=== PATIENT | female | born 1945 | race Asian ===

== ENCOUNTER 2021-03-16 17:29 | Inpatient (IN) | payer MEDICARE, MEDICAID ==
[~2021-03-16] VITALS: Ht 162.6 cm; Wt 68.2 kg
[2021-03-16] MEDS ORDERED: insulin regular, human U-100 3ml vial - multi-dose IV ONE (18:30)
[2021-03-16] MEDS ORDERED: normal saline 1000ML IV soln IVB ONE (18:30)
[2021-03-16 19:02] LABS: MEAN CORPUSCULAR HEMOGLOBIN 29.4 PG (27.0-31.0); MEAN PLATELET VOLUME 8.3 FL (7.4-10.4)
[2021-03-16 19:04] LABS: BASOPHILS % (AUTO) 0.3 % (0-1); EOSINOPHILS % (AUTO) 0.3 % (0-6); LYMPHOCYTES # (AUTO) 1.3 X10'3 (1.1-4.8); MEAN CORPUSCULAR HGB CONC 33.4 g/dL (33.0-36.5); MONOCYTES % (AUTO) 6.3 % (2-12); NEUTROPHILS % (AUTO) 85.1 % (42-75); PLATELET COUNT 343 X10'3 (140-440); RED BLOOD COUNT 4.09 X10'6 (4.20-5.60); RED CELL DISTRIBUTION WIDTH 12.8 % (11.5-14.5); WHITE BLOOD COUNT 16.5 X10'3 (4.5-11.0)
[2021-03-16 19:11] LABS: ALANINE AMINOTRANSFERASE 18 U/L (12-78); ALBUMIN/GLOBULIN RATIO 0.4 (1.1-1.5); ALKALINE PHOSPHATASE 168 IU/L (46-116); ANION GAP 13 (8-16); ASPARTATE AMINO TRANSFERASE 21 U/L (10-37); BILIRUBIN,TOTAL 0.7 MG/DL (0.1-1.0); BLOOD UREA NITROGEN 21 MG/DL (7-18); BUN/CREATININE RATIO 12.3 (6.6-38.0); CALCIUM 9.1 MG/DL (8.5-10.1); CHLORIDE 97 MMOL/L (99-107); CREATININE 1.71 MG/DL (0.40-0.90); POTASSIUM 4.5 MMOL/L (3.5-5.1); SODIUM 135 MMOL/L (135-145); TOTAL CARBON DIOXIDE 25.4 MMOL/L (24-32); TOTAL PROTEIN 7.7 G/DL (6.4-8.2); eGFR 29 ML/MIN
[2021-03-16] MEDS ORDERED: normal saline 1000ML IV soln IV ONE (19:25)
[2021-03-16 19:28] LABS: GLUCOSE 483 MG/DL (70-104)
[2021-03-16] MEDS ORDERED: TETanus/Pertussis (Acell)/Diphther VAC/PF (Tdap-Adult) 0.5ml syringe IMVAC ONE (19:40)
[2021-03-16] MEDS ORDERED: vancomycin/NS 1 GM ADD-VANTAGE 250 ML IV ONE (19:40)
--- NOTE | 2021-03-16 19:41 | NUR ---
PT ROOMED IN BED 10. ASSUMED CARE OF PT.
[2021-03-16] MEDS ORDERED: piperacillin/tazo 3.375gm/50ml 50 ML IV ONE (19:45)
[2021-03-16] MEDS ORDERED: insulin regular, human 10 units/0.1 ml syringe IV ONE (21:00)
[2021-03-16] MEDS ORDERED: potassium Cl 20 mEq SR tablet PO PRN ×2 (21:10)
[2021-03-16] MEDS ORDERED: ondansetron/PF 4mg/2ml inj IV PRN (21:10)
[2021-03-16] MEDS ORDERED: potassium Cl 40MEQ/1/2NS 520ml 520 ML IV PRN ×2 (21:10)
[2021-03-16] MEDS ORDERED: magnesium 4gm in 100ml NS 100 ML IV PRN (21:10)
[2021-03-16] MEDS ORDERED: magnesium 2GM in 50ml NS 50 ML IV PRN (21:10)
[2021-03-16] MEDS ORDERED: magnesium Cl slow-release 64mg tablet PO PRN (21:10)
[2021-03-16] MEDS ORDERED: CefTRIAXone/D5W-Rocephin 1gm 50 ML IV SCH (21:15)
[2021-03-16] MEDS: normal saline 1000ml 1,000 ML IV SCH (22:06)
--- NOTE | 2021-03-17 00:17 | NUR ---
PT HAD EPISODE OF EMESIS. BG CHECKED AND ZOFRAN GIVEN.
--- NOTE | 2021-03-17 00:33 | NUR ---
PT IS NOW SLEEPING COMFORTABLY AGAIN
[2021-03-17] MEDS ORDERED: SITA100T15 PO (05:55)
[2021-03-17] MEDS ORDERED: METF-900 PO (05:55)
[2021-03-17] MEDS ORDERED: EMPA25TA PO (05:55)
[2021-03-17] MEDS ORDERED: CEPH-585 PO (05:55)
[2021-03-17] MEDS ORDERED: LANS15CA18 PO (05:55)
[2021-03-17] MEDS ORDERED: LOSA100T57 PO (05:55)
[2021-03-17] MEDS: K and/or MAG REPLACEMENT MC SCH ×2 (08:00→20:00)
[2021-03-17] MEDS: cefepime 1GM in D5W 50mL 50 ML IV SCH ×2 (08:10→20:53)
[2021-03-17] MEDS: normal saline 1000ml 1,000 ML IV SCH ×2 (08:10→13:25)
[2021-03-17] MEDS ORDERED: dextrose 50%-water 50ml dispensing syringe IV PRN ×2 (08:15)
[2021-03-17] MEDS ORDERED: dextrose ORAL solution 15 GM/59 ML bottle PO PRN ×2 (08:15)
[2021-03-17] MEDS ORDERED: glucagon, human recombinant 1mg kit SUBCUT PRN (08:15)
[2021-03-17] MEDS ORDERED: MESSAGE TO PHARMACY PO ONE (08:15)
[2021-03-17 08:24] LABS: BASOPHILS % (AUTO) 0.3 % (0-1); EOSINOPHILS % (AUTO) 0.3 % (0-6); HEMATOCRIT 30.2 % (35.0-45.0); HEMOGLOBIN 9.9 g/dl (12.0-16.0); LYMPHOCYTES % (AUTO) 7.3 % (21-51); MEAN CORPUSCULAR HEMOGLOBIN 29.1 PG (27.0-31.0); MEAN CORPUSCULAR HGB CONC 32.6 g/dL (33.0-36.5); MEAN CORPUSCULAR VOLUME 89.3 FL (78-98); MEAN PLATELET VOLUME 7.9 FL (7.4-10.4); MONOCYTES # (AUTO) 0.9 X10'3 (0-0.9); MONOCYTES % (AUTO) 6.6 % (2-12); NEUTROPHILS # (AUTO) 12.1 X10'3 (1.8-7.7); NEUTROPHILS % (AUTO) 85.5 % (42-75); PLATELET COUNT 249 X10'3 (140-440); RED BLOOD COUNT 3.38 X10'6 (4.20-5.60); RED CELL DISTRIBUTION WIDTH 12.9 % (11.5-14.5); WHITE BLOOD COUNT 14.2 X10'3 (4.5-11.0)
[2021-03-17] MEDS ORDERED: NAPR220C62 PO (08:24)
[2021-03-17] MEDS ORDERED: GLIM2TAB6 PO (08:24)
[2021-03-17] MEDS ORDERED: INSU100I25 SQ (08:24)
[2021-03-17] MEDS ORDERED: LACT1CAP65 PO (08:24)
[2021-03-17 08:54] LABS: ALBUMIN 1.4 G/DL (3.4-5.0); ANION GAP 10 (8-16); BLOOD UREA NITROGEN 19 MG/DL (7-18); BUN/CREATININE RATIO 14.6 (6.6-38.0); CALCIUM 8.1 MG/DL (8.5-10.1); CHLORIDE 107 MMOL/L (99-107); GLUCOSE 277 MG/DL (70-104); MAGNESIUM 1.9 MG/DL (1.5-2.4); POTASSIUM 4.4 MMOL/L (3.5-5.1); SODIUM 139 MMOL/L (135-145); TOTAL CARBON DIOXIDE 21.8 MMOL/L (24-32); eGFR 40 ML/MIN
[2021-03-17] MEDS: losartan 50mg tablet PO SCH (09:13)
[2021-03-17] MEDS: insulin Lispro (HumaLOG) vial - multi-dose SQ SCH ×3 (09:17→20:40)
--- NOTE | 2021-03-17 09:37 | NUR ---
REPORT ATTEMPTED, RN TO CALL BACK IN "20 MINUTES" RN CURRENTLY UNAVAILABLE.
--- NOTE | 2021-03-17 10:02 | NUR ---
Called to get report from ED, Nurse is busy and will call back with report
--- NOTE | 2021-03-17 11:33 | NUR ---
Patient in room ED 10. I have received report from Magdalena RN and had the opportunity to ask questions and assume patient care.
--- NOTE | 2021-03-17 11:33 | NUR ---
Reported off to SANKET Vance, pt going to room 9250M
[2021-03-17 12:00] VITALS: BP 144/66
[2021-03-17] MEDS: acetaminophen 325mg tablet PO PRN (13:25)
--- NOTE | 2021-03-17 13:30 | NUR ---
Spoke with Dr. Salinas regarding left ankle ulcer/decub. Cleaned and dressed with Allyven dressing, wound consult order placed. Dr. Salinas is aware that patient is on the unit at this time. New Admit
[2021-03-17 15:00] VITALS: BP 128/58
[2021-03-17] MEDS ORDERED: pneumococcal 23-VAL P-sac vacc 25 mcg/0.5ml vial IMVAC ONE (17:15)
[2021-03-17] MEDS ORDERED: FLU VACC QS2021-22(6MOS UP)/PF 60 MCG/0.5 ML SYRINGE IM ONE (17:15)
[2021-03-17 18:00] VITALS: BP 128/65
--- NOTE | 2021-03-17 18:55 | NUR ---
Problems reprioritized. Patient report given, questions answered & plan of care reviewed with Bella COLES.
[2021-03-17] MEDS: lactobacillus rhamnosus 10,000 MMU CELLS/CAPSULE PO SCH (20:53)
[2021-03-17 22:00] VITALS: BP 133/61
[2021-03-17] MEDS: insulin glargine (Lantus) pen - multi-dose SQ SCH (22:43)
[2021-03-18 02:00] VITALS: BP 126/61
[2021-03-18] MEDS: normal saline 1000ml 1,000 ML IV SCH (02:11)
[2021-03-18 06:00] VITALS: BP 139/48
--- NOTE | 2021-03-18 06:00 | NUR ---
Patient in room PCU 3012. I have received report from SANKET Vance and had the opportunity to ask questions and assume patient care.
--- NOTE | 2021-03-18 06:35 | NUR ---
Problems reprioritized. Patient report given, questions answered & plan of care reviewed with SANKET Vance.
[2021-03-18 07:00] LABS: BASOPHILS % (AUTO) 0.2 % (0-1); EOSINOPHILS # (AUTO) 0.1 X10'3 (0-0.9); EOSINOPHILS % (AUTO) 0.9 % (0-6); HEMATOCRIT 28.5 % (35.0-45.0); HEMOGLOBIN 9.4 g/dl (12.0-16.0); LYMPHOCYTES # (AUTO) 1.2 X10'3 (1.1-4.8); LYMPHOCYTES % (AUTO) 9.6 % (21-51); MEAN CORPUSCULAR HEMOGLOBIN 29.2 PG (27.0-31.0); MEAN CORPUSCULAR HGB CONC 33.1 g/dL (33.0-36.5); MEAN CORPUSCULAR VOLUME 88.3 FL (78-98); MEAN PLATELET VOLUME 7.6 FL (7.4-10.4); MONOCYTES # (AUTO) 0.7 X10'3 (0-0.9); MONOCYTES % (AUTO) 5.5 % (2-12); NEUTROPHILS # (AUTO) 10.1 X10'3 (1.8-7.7); NEUTROPHILS % (AUTO) 83.8 % (42-75); PLATELET COUNT 247 X10'3 (140-440); RED BLOOD COUNT 3.23 X10'6 (4.20-5.60); RED CELL DISTRIBUTION WIDTH 12.9 % (11.5-14.5); WHITE BLOOD COUNT 12.1 X10'3 (4.5-11.0)
--- NOTE | 2021-03-18 07:06 | NUR ---
Did PT education about blood glucose monitoring. Demonstrated how to clean lancet area with alcohol, had PT demonstrate back. Demonstrated how to use lancet and had PT demonstrate back. Had PT wipe blood with gauze, and apply blood to glucose stick. Showed PT result of 225.
--- NOTE | 2021-03-18 07:06 | NUR ---
Diabetic teaching with patient this morning, patient was taught how to clean finger, locate finger site to gather blood sample, use of lancet, gathering blood sample onto glucometer strip and use of glucometer. Patient did very well. Will continue to teach.
[2021-03-18 07:24] LABS: ALBUMIN 1.2 G/DL (3.4-5.0); ANION GAP 8 (8-16); BLOOD UREA NITROGEN 18 MG/DL (7-18); BUN/CREATININE RATIO 13.5 (6.6-38.0); CALCIUM 8.1 MG/DL (8.5-10.1); CHLORIDE 110 MMOL/L (99-107); CREATININE 1.33 MG/DL (0.40-0.90); GLUCOSE 204 MG/DL (70-104); MAGNESIUM 1.9 MG/DL (1.5-2.4); POTASSIUM 4.2 MMOL/L (3.5-5.1); SODIUM 140 MMOL/L (135-145); TOTAL CARBON DIOXIDE 22.2 MMOL/L (24-32); eGFR 39 ML/MIN
[2021-03-18] MEDS: EMPAGLIFLOZIN 25 MG PO SCH (08:00)
[2021-03-18] MEDS: K and/or MAG REPLACEMENT MC SCH ×2 (08:00→20:00)
[2021-03-18] MEDS: cefepime 1GM in D5W 50mL 50 ML IV SCH ×2 (08:12→19:59)
[2021-03-18] MEDS: lactobacillus rhamnosus 10,000 MMU CELLS/CAPSULE PO SCH ×2 (08:13→19:59)
[2021-03-18] MEDS: losartan 50mg tablet PO SCH (08:13)
[2021-03-18] MEDS: insulin Lispro (HumaLOG) vial - multi-dose SQ SCH ×3 (08:22→19:16)
--- NOTE | 2021-03-18 08:30 | NUR ---
Completed diabetic teaching about blood sugar glucometer usage, insulin injections, insulin injection sites, using the clock injection site method in the abdomen. Will continue to complete diabetic teaching.
--- NOTE | 2021-03-18 08:30 | NUR ---
Taught about blood glucose monitoring, drawing up insulin, cleaning of injection site, rotating insulin injection sites using the clock method in the abdomen. Will continue to teach patient, as well as have patient demonstrate taught methods
--- NOTE | 2021-03-18 09:30 | NUR ---
Completed diabetic teaching with Patient, and Daughter. Taught about blood glucose monitoring, drawing up insulin, cleaning of injection site, rotating insulin injection sites using the clock method in the abdomen. Daughter translated to PT as I taught. Will continue to teach patient and family, as well as have patient teach back and demonstrate taught methods
--- NOTE | 2021-03-18 09:30 | NUR ---
spoke with Leah, manager hospital regarding Dr. Salinas would like to set up a referral to the wound clinic in [place] for the left ankle ulcer wound.
[2021-03-18] MEDS: acetaminophen 325mg tablet PO PRN (09:31)
--- NOTE | 2021-03-18 09:35 | NUR ---
Completed diabetic teaching with Patient, and Daughter. Taught about blood glucose monitoring, drawing up insulin, cleaning of injection site, rotating insulin injection sites using the clock method in the abdomen. Will continue to teach patient and family, as well as have patient demonstrate taught methods
--- NOTE | 2021-03-18 10:54 | NUR ---
Paged Dr. Salinas PAGER ID: [phone] MESSAGE: [facility] [id number] Charisma Green, pain is 9/10 after receiving Tylenol 650mg at 0931, requesting a strong pain medication to relieve the pain. Also need new Telemetry order, Please advise Pinky COLES [phone]
[2021-03-18 11:00] VITALS: BP 123/63
--- NOTE | 2021-03-18 11:00 | NUR ---
Assisted in left ankle wound cleaning, patting dry, applied new dressing
--- NOTE | 2021-03-18 11:05 | NUR ---
Cleaned wound on left ankle area using normal saline, pat dry, applied non-adhesive dressing. Dressing clean dry and intact. Date time and initials. Completed with direct patient care nurse SANKET Valladares
[2021-03-18] MEDS: HYDROcodone/acetaminophen 5mg/325mg tablet PO PRN ×2 (11:52→19:59)
--- NOTE | 2021-03-18 12:00 | NUR ---
Diabetic teaching with patient, Patient was able to demonstrate proper cleaning of finger, use of lancet to obtain blood sample, and used glucometer to obtain blood sugar reading of 123. Will continue to complete diabetic teaching
--- NOTE | 2021-03-18 12:01 | NUR ---
Problems reprioritized. Patient report given, questions answered & plan of care reviewed with SANKET Vance.
--- NOTE | 2021-03-18 13:14 | NUR ---
Student Medication Administration: For this medication-pass time frame, all medication were reviewed, dispensed, administered and documented per hospital policy by Martin nursing service director.
--- NOTE | 2021-03-18 13:14 | NUR ---
Student documentation: I have reviewed and agree with all interventions, assessments performed and documented by Martin, vocational nursing instructor.
--- NOTE | 2021-03-18 13:30 | NUR ---
Completed diabetic teaching with Patient and Daughter. Taught about blood glucose monitoring, drawing up insulin, cleaning of injection site, rotating insulin injection sites using the clock method in the abdomen. Will continue to teach patient and family, as well as have patient demonstrate taught methods. Patient was able to participate in insulin administration after lunch.
--- NOTE | 2021-03-18 14:19 | NUR ---
Diabetes consult: Noted A1C 12.8 Per EMR pt previously on Metformin and recently started taking Insulin. Pt w/ limited [place] though family member at bedside to translate. Provided Pt and family w/ written and verbal DM education w/ RD contact info. Pt receptive of information. Addendum: 03/18/21 at [address] Amended: Links added.
[2021-03-18 15:00] VITALS: BP 105/65
--- NOTE | 2021-03-18 15:00 | NUR ---
On hourly rounds daughter requested more information on diagnosis of diabetes. This student nurse under the supervision of SANKET Valladares provided family teaching on diabetic diet, patient compliance, diabetic neuropathy, increased risk for wounds and infection. Provided teaching on ways to encourage pt diet compliance and for family to support pt in making lifestyle changes. Emphasized important of wound care compliance and how her healing will be added by using her insuline and medications as doctor prescribes. Patients daughter was interested and engaged in learning and helping her mother. Patient calm and resting.
--- NOTE | 2021-03-18 17:29 | NUR ---
Completed more diabetic teaching with patient and patient's daughter. Reviewed blood glucose monitoring and had patient demonstrate getting her own blood glucose 172 at this time. Patient did very well. Patient is becoming more comfortable with completing diabetic treatment.
[2021-03-18 18:00] VITALS: BP 128/64
--- NOTE | 2021-03-18 18:15 | NUR ---
Problems reprioritized. Patient report given, questions answered & plan of care reviewed with Bella COLES.
[2021-03-18 22:00] VITALS: BP 129/61
[2021-03-18] MEDS: insulin glargine (Lantus) pen - multi-dose SQ SCH (22:05)
[2021-03-19 02:00] VITALS: BP 119/64
[2021-03-19] MEDS: normal saline 1000ml 1,000 ML IV SCH ×2 (03:04→08:10)
[2021-03-19 06:00] VITALS: BP 139/65
--- NOTE | 2021-03-19 06:38 | NUR ---
Patient in room PCU 3012. I have received report from Bella COLES and had the opportunity to ask questions and assume patient care.
--- NOTE | 2021-03-19 06:38 | NUR ---
Problems reprioritized. Patient report given, questions answered & plan of care reviewed with SANKET Vance.
[2021-03-19 08:00] LABS: BASOPHILS % (AUTO) 0.3 % (0-1); EOSINOPHILS # (AUTO) 0.2 X10'3 (0-0.9); EOSINOPHILS % (AUTO) 1.7 % (0-6); HEMATOCRIT 26.7 % (35.0-45.0); LYMPHOCYTES # (AUTO) 1.3 X10'3 (1.1-4.8); LYMPHOCYTES % (AUTO) 12.4 % (21-51); MEAN CORPUSCULAR HEMOGLOBIN 29.9 PG (27.0-31.0); MEAN CORPUSCULAR HGB CONC 33.8 g/dL (33.0-36.5); MEAN CORPUSCULAR VOLUME 88.5 FL (78-98); MEAN PLATELET VOLUME 7.5 FL (7.4-10.4); MONOCYTES # (AUTO) 0.7 X10'3 (0-0.9); MONOCYTES % (AUTO) 7.1 % (2-12); NEUTROPHILS # (AUTO) 8.1 X10'3 (1.8-7.7); NEUTROPHILS % (AUTO) 78.5 % (42-75); PLATELET COUNT 248 X10'3 (140-440); RED BLOOD COUNT 3.01 X10'6 (4.20-5.60); RED CELL DISTRIBUTION WIDTH 13.1 % (11.5-14.5); WHITE BLOOD COUNT 10.3 X10'3 (4.5-11.0)
[2021-03-19] MEDS: K and/or MAG REPLACEMENT MC SCH (08:00)
[2021-03-19] MEDS: cefepime 1GM in D5W 50mL 50 ML IV SCH (08:07)
[2021-03-19] MEDS: HYDROcodone/acetaminophen 5mg/325mg tablet PO PRN (08:08)
[2021-03-19] MEDS: losartan 50mg tablet PO SCH (08:09)
[2021-03-19] MEDS: EMPAGLIFLOZIN 25 MG PO SCH (08:09)
[2021-03-19] MEDS: lactobacillus rhamnosus 10,000 MMU CELLS/CAPSULE PO SCH (08:09)
[2021-03-19 08:13] LABS: ALBUMIN 1.1 G/DL (3.4-5.0); ANION GAP 7 (8-16); BLOOD UREA NITROGEN 20 MG/DL (7-18); BUN/CREATININE RATIO 12.9 (6.6-38.0); CALCIUM 8.4 MG/DL (8.5-10.1); CHLORIDE 113 MMOL/L (99-107); CREATININE 1.55 MG/DL (0.40-0.90); GLUCOSE 149 MG/DL (70-104); POTASSIUM 4.3 MMOL/L (3.5-5.1); SODIUM 143 MMOL/L (135-145); eGFR 33 ML/MIN
[2021-03-19] MEDS ORDERED: CEFD300C3 PO (08:27)
[2021-03-19] MEDS: insulin Lispro (HumaLOG) vial - multi-dose SQ SCH (09:01)
[2021-03-19] MEDS ORDERED: HYDR-3965 PO (10:05)
[2021-03-19 11:00] VITALS: BP 116/68
--- NOTE | 2021-03-19 11:13 | NUR ---
patient stable and comfortable at discharge. Removed Telemetry and PIV with cannula intact. No redness or irritation at PIV site. Gathered all valuables, placed in bag and gave to patient for discharge. Gave and reviewed in detail all patient discharge information and discharge education with patient and family member. Patient and family member we able to ask questions and get answers about all patient discharge information and discharge education. Patient and family member were able to verbalize back all patient discharge information and discharge education. Patient is ready for discharge. Patient and family member will warp picker new medication and glucometer supplies at pharmacy on their way home. Currently they are waiting for another family member to drive them home.
--- NOTE | 2021-03-19 11:15 | NUR ---
See EMR for H&P. Patient is currently in the process of being discharged. Wound care consult received for "L ankle decubitus", upon assessment, Posterior L ankle is moist, hypergranulated, and painful, with maceration to periwound. This is a diabetic ulcer. Cleansed wound with NS, applied honey and alginate, covered with foam, wrapped with kerlix, secured with tape. Explained dressing changes to daughter at bedside. Patient has appointment at [facility] wound center.
--- NOTE | 2021-03-19 13:21 | NUR ---
patient was wheeled out to the lobby in wheelchair by staff accompanied by family members. Patient left hospital via private vehicle,
== END 2021-03-19 13:35 | disposition home health service (06) | DRG 871 ==
LOC: ER 17:30 → ED HOLD 21:12 → PCU 3S 03-17 12:11
PROVIDERS: ADMIT Internal Medicine; ATTEND Family Medicine
PROC: 3E0234Z Introduction of Serum, Toxoid and Vaccine into Muscle, Percutaneous Approach (ICD-10-PCS; principal; 2021-03-16)
PROC: 3E02340 Introduction of Influenza Vaccine into Muscle, Percutaneous Approach (ICD-10-PCS; 2021-03-17)
DX: A41.9 Sepsis, unspecified organism (principal); N17.0 Acute kidney failure with tubular necrosis; L03.116 Cellulitis of left lower limb; E11.22 Type 2 diabetes mellitus with diabetic chronic kidney disease; E11.65 Type 2 diabetes mellitus with hyperglycemia; E11.21 Type 2 diabetes mellitus with diabetic nephropathy; S86.092A Other specified injury of left Achilles tendon, initial encounter; X58.XXXA Exposure to other specified factors, initial encounter; I12.9 Hypertensive chronic kidney disease with stage 1 through stage 4 chronic kidney disease, or unspecified chronic kidney disease; N18.9 Chronic kidney disease, unspecified; Z79.4 Long term (current) use of insulin; Z23 Encounter for immunization; Y93.89 Activity, other specified; Y92.89 Other specified places as the place of occurrence of the external cause; Y99.8 Other external cause status
CPT/HCPCS: 36415; 71045; 73610; 80048; 80053; 82948; 83036; 83605; 83735; 84145; 85025; 87040; 87081; 90715; 90732; 93005; 93971; 96360; 96361; 97110; 97161; 97530; 99285; G0378; J0692; J1815; J2405; J2543; J3370; J7030

== ENCOUNTER 2021-03-21 14:57 | Emergency (ER) | payer MEDICARE, MEDICAID ==
[~2021-03-21] VITALS: Ht 147.3 cm; Wt 63.6 kg
[~2021-03-21 14:57] MED LIST: CEFD300C3 PO; EMPA25TA PO; HYDR-3965 PO; INSU100I25 SQ; LACT1CAP65 PO; LOSA100T57 PO; METF-900 PO; NAPR220C62 PO; SITA100T15 PO
[2021-03-21 15:31] LABS: BASOPHILS % (AUTO) 0.3 % (0-1); EOSINOPHILS # (AUTO) 0.1 X10'3 (0-0.9); EOSINOPHILS % (AUTO) 1.4 % (0-6); HEMATOCRIT 31.2 % (35.0-45.0); HEMOGLOBIN 10.5 g/dl (12.0-16.0); LYMPHOCYTES # (AUTO) 1.1 X10'3 (1.1-4.8); LYMPHOCYTES % (AUTO) 11.2 % (21-51); MEAN CORPUSCULAR HEMOGLOBIN 29.5 PG (27.0-31.0); MEAN CORPUSCULAR HGB CONC 33.6 g/dL (33.0-36.5); MEAN CORPUSCULAR VOLUME 87.8 FL (78-98); MONOCYTES # (AUTO) 0.6 X10'3 (0-0.9); MONOCYTES % (AUTO) 6.2 % (2-12); NEUTROPHILS # (AUTO) 8.2 X10'3 (1.8-7.7); NEUTROPHILS % (AUTO) 80.9 % (42-75); PLATELET COUNT 400 X10'3 (140-440); RED BLOOD COUNT 3.55 X10'6 (4.20-5.60); RED CELL DISTRIBUTION WIDTH 13.2 % (11.5-14.5); WHITE BLOOD COUNT 10.2 X10'3 (4.5-11.0)
[2021-03-21 15:45] LABS: ALANINE AMINOTRANSFERASE 18 U/L (12-78); ALBUMIN 1.6 G/DL (3.4-5.0); ALBUMIN/GLOBULIN RATIO 0.3 (1.1-1.5); ALKALINE PHOSPHATASE 129 IU/L (46-116); ANION GAP 7 (8-16); ASPARTATE AMINO TRANSFERASE 19 U/L (10-37); BILIRUBIN,TOTAL 0.3 MG/DL (0.1-1.0); BLOOD UREA NITROGEN 14 MG/DL (7-18); BUN/CREATININE RATIO 9.7 (6.6-38.0); CALCIUM 8.8 MG/DL (8.5-10.1); CHLORIDE 104 MMOL/L (99-107); CREATININE 1.45 MG/DL (0.40-0.90); GLUCOSE 239 MG/DL (70-104); POTASSIUM 4.5 MMOL/L (3.5-5.1); SODIUM 136 MMOL/L (135-145); TOTAL CARBON DIOXIDE 24.6 MMOL/L (24-32); eGFR 35 ML/MIN
[2021-03-21 16:57] LABS: MAGNESIUM 1.8 MG/DL (1.5-2.4)
[2021-03-21] MEDS ORDERED: bacitracin 15gm ointment TP ONE (19:30)
[2021-03-21] MEDS ORDERED: CefTRIAXone 2gm/D5W 50ml BAG 50 ML IV ONE (19:30)
[2021-03-21] MEDS ORDERED: vancomycin/NS 1 GM ADD-VANTAGE 250 ML IV ONE (19:30)
[2021-03-21 22:56] VITALS: BP 168/75
== END 2021-03-21 22:50 | disposition home or self-care (01) ==
LOC: ER 14:57
DX: S81.802A Unspecified open wound, left lower leg, initial encounter (principal); E11.65 Type 2 diabetes mellitus with hyperglycemia; E11.22 Type 2 diabetes mellitus with diabetic chronic kidney disease; N18.9 Chronic kidney disease, unspecified; Z79.2 Long term (current) use of antibiotics; Z79.4 Long term (current) use of insulin; Z79.899 Other long term (current) drug therapy; X58.XXXA Exposure to other specified factors, initial encounter; Y93.89 Activity, other specified; Y92.89 Other specified places as the place of occurrence of the external cause; Y99.8 Other external cause status
CPT/HCPCS: 36415; 73700; 80053; 83605; 83735; 84145; 85025; 87040; 96365; 96367; 99284; J0696; J3370

== ENCOUNTER 2023-04-10 21:48 | Inpatient (IN) | payer MEDICARE, MEDICAID ==
[~2023-04-10] VITALS: Ht 149.9 cm; Wt 59.0 kg
[~2023-04-10 21:48] MED LIST changes: -CEFD300C3 PO; +CHOL100017 PO; -HYDR-3965 PO; +HYDR12.55 PO; -INSU100I25 SQ; +INSU100I27 SQ; +LANS15CA18 PO; -LOSA100T57 PO; +LOSA100T58 PO; -METF-900 PO; +METO-395 PO
[2023-04-10 23:14] LABS: BASOPHILS % (AUTO) 0.3 % (0-1); EOSINOPHILS # (AUTO) 0.2 X10'3 (0-0.9); EOSINOPHILS % (AUTO) 1.3 % (0-6); HEMATOCRIT 32.7 % (35.0-45.0); HEMOGLOBIN 10.4 g/dl (12.0-16.0); LYMPHOCYTES # (AUTO) 1.4 X10'3 (1.1-4.8); LYMPHOCYTES % (AUTO) 8.9 % (21-51); MEAN CORPUSCULAR HEMOGLOBIN 28.5 PG (27.0-31.0); MEAN CORPUSCULAR HGB CONC 31.7 g/dL (33.0-36.5); MEAN CORPUSCULAR VOLUME 89.8 FL (78-98); MEAN PLATELET VOLUME 7.4 FL (7.4-10.4); MONOCYTES # (AUTO) 1.3 X10'3 (0-0.9); MONOCYTES % (AUTO) 8.3 % (2-12); NEUTROPHILS # (AUTO) 12.6 X10'3 (1.8-7.7); NEUTROPHILS % (AUTO) 81.2 % (42-75); PLATELET COUNT 226 X10'3 (140-440); RED BLOOD COUNT 3.64 X10'6 (4.20-5.60); RED CELL DISTRIBUTION WIDTH 15.3 % (11.5-14.5); WHITE BLOOD COUNT 15.5 X10'3 (4.5-11.0)
[2023-04-10 23:39] LABS: ALANINE AMINOTRANSFERASE 24 U/L (12-78); ALBUMIN 2.4 G/DL (3.4-5.0); ALBUMIN/GLOBULIN RATIO 0.5 (1.1-1.5); ALKALINE PHOSPHATASE 141 IU/L (46-116); ANION GAP 9 (8-16); ASPARTATE AMINO TRANSFERASE 25 U/L (10-37); BILIRUBIN,TOTAL 0.6 MG/DL (0.1-1.0); BLOOD UREA NITROGEN 40 MG/DL (7-18); BUN/CREATININE RATIO 16.7 (10.0-20.0); CALCIUM 8.6 MG/DL (8.5-10.1); CHLORIDE 105 MMOL/L (99-107); CREATININE 2.39 MG/DL (0.40-0.90); GLUCOSE 201 MG/DL (70-104); LIPASE 85 U/L (16-77); POTASSIUM 4.9 MMOL/L (3.5-5.1); SODIUM 137 MMOL/L (135-145); TOTAL CARBON DIOXIDE 22.7 MMOL/L (24-32); TOTAL PROTEIN 6.8 G/DL (6.4-8.2); eCRCL 14 ML/MIN; eGFR 20 ML/MIN
[2023-04-11 00:22] LABS: BILIRUBIN,URINE NEGATIVE (Neg); CLARITY,URINE CLOUDY (Clear); COLOR,URINE YELLOW (Yellow); GLUCOSE, URINE >=1000 mg/dl (Neg); KETONES,URINE NEGATIVE (Neg); LEUKOCYTE ESTERASE ,URINE NEGATIVE (Neg); NITRITES, URINE NEGATIVE (Neg); OCCULT BLOOD,URINE SMALL (Neg); PROTEIN,URINE >=300 mg/dl (Neg); UA COLLECTION TYPE CLN CATCH MIDSTREAM; UROBILINOGEN,URINE 0.2 E.U/dL (0.2-1.0)
[2023-04-11 00:39] LABS: BACTERIA,URINE 4+ /HPF (Neg); MUCUS STRANDS NONE SEEN /LPF (Neg); RBC,URINE 0-2 /HPF (0-2); SQUAMOUS EPITHELIAL CELL,UR NONE SEEN /LPF (FEW); WBC,URINE 50-100 /HPF (0-4)
[2023-04-11 01:01] LABS: PLATELET ESTIMATE NORMAL; TOTAL CELLS COUNTED 100
[2023-04-11] MEDS ORDERED: CefTRIAXone 2gm/D5W 50ml BAG 50 ML IV ONE (01:20)
[2023-04-11] MEDS ORDERED: normal saline 1000ML IV soln IV ONE (01:20)
[2023-04-11 01:45] LABS: C-REACTIVE PROTEIN 5.62 MG/DL (0.0-0.5)
[2023-04-11] MEDS ORDERED: azithromycin/NS 500mg/250ml 250 ML IV ONE (02:20)
[2023-04-11] MEDS ORDERED: potassium Cl 40MEQ/1/2NS 520ml 520 ML IV PRN (02:30)
[2023-04-11] MEDS ORDERED: mag hydrox/Alum hydrox/simeth 30ml oral suspension PO PRN (02:30)
[2023-04-11] MEDS ORDERED: magnesium 2GM in 50ml NS 50 ML IV PRN (02:30)
[2023-04-11] MEDS ORDERED: magnesium hydroxide 30ml (MOM) UD suspension PO PRN (02:30)
[2023-04-11] MEDS ORDERED: acetaminophen 325mg tablet PO PRN (02:30)
[2023-04-11] MEDS ORDERED: magnesium 4gm in 100ml NS 100 ML IV PRN (02:30)
[2023-04-11] MEDS ORDERED: MESSAGE TO PHARMACY PO ONE (02:35)
[2023-04-11] MEDS ORDERED: glucagon, human recombinant 1mg kit SUBCUT PRN (02:35)
[2023-04-11] MEDS ORDERED: DEXTROSE 15 GM of carb/4 tabs (each vial/BOTTLE has 4 tablets) PO PRN ×2 (02:35)
[2023-04-11] MEDS ORDERED: amLODIPine 5mg tablet PO ONE (02:35)
[2023-04-11] MEDS ORDERED: dextrose 50%-water 50ml dispensing syringe IV PRN ×2 (02:35)
[2023-04-11] MEDS: normal saline 1000ml 1,000 ML IV SCH ×3 (02:53→22:36)
[2023-04-11] MEDS: ondansetron/PF 4mg/2ml inj IV PRN (03:23)
[2023-04-11] MEDS: K and/or MAG REPLACEMENT MC SCH ×2 (07:38→19:31)
[2023-04-11] MEDS: docusate sod 100mg capsule PO SCH ×2 (07:43→19:32)
[2023-04-11] MEDS: heparin, porcine 5000 units/ml vial SQ SCH ×2 (07:44→19:34)
[2023-04-11] MEDS: CefTRIAXone/D5W-Rocephin 1gm 50 ML IV SCH (07:51)
[2023-04-11] MEDS: insulin Lispro (HumaLOG) vial - multi-dose SQ SCH ×2 (08:46→13:26)
[2023-04-11 09:51] LABS: MAGNESIUM 1.7 MG/DL (1.5-2.4); POTASSIUM 4.5 MMOL/L (3.5-5.1)
[2023-04-11] MEDS: guaiFENesin 200 MG/10 ML oral syrup UD cup PO PRN (20:59)
[2023-04-11] MEDS ORDERED: GABA-530 (21:04)
[2023-04-11] MEDS ORDERED: GABA-530 PO (21:04)
[2023-04-11] MEDS ORDERED: DAPA5TAB PO (21:07)
[2023-04-11] MEDS ORDERED: FURO40TA4 PO (21:07)
[2023-04-11] MEDS ORDERED: AMLO10TA13 PO (21:08)
[2023-04-11] MEDS ORDERED: INSU100V12 (21:10)
[2023-04-11 22:20] VITALS: BP 139/73; PULSE 84; RESP 20; TEMP 99.5; O2SAT 94
[2023-04-12] MEDS: ondansetron/PF 4mg/2ml inj IV PRN (02:40)
[2023-04-12 06:00] VITALS: BP 164/79; PULSE 92; RESP 15; TEMP 98.7; O2SAT 94
[2023-04-12 06:14] LABS: BASOPHILS % (AUTO) 0.2 % (0-1); EOSINOPHILS # (AUTO) 0.1 X10'3 (0-0.9); EOSINOPHILS % (AUTO) 1.2 % (0-6); HEMATOCRIT 27.6 % (35.0-45.0); HEMOGLOBIN 8.8 g/dl (12.0-16.0); LYMPHOCYTES # (AUTO) 1.1 X10'3 (1.1-4.8); LYMPHOCYTES % (AUTO) 9.2 % (21-51); MEAN CORPUSCULAR HEMOGLOBIN 29.2 PG (27.0-31.0); MEAN CORPUSCULAR HGB CONC 31.9 g/dL (33.0-36.5); MEAN CORPUSCULAR VOLUME 91.5 FL (78-98); MEAN PLATELET VOLUME 7.6 FL (7.4-10.4); MONOCYTES # (AUTO) 0.7 X10'3 (0-0.9); NEUTROPHILS # (AUTO) 9.7 X10'3 (1.8-7.7); NEUTROPHILS % (AUTO) 83.4 % (42-75); PLATELET COUNT 192 X10'3 (140-440); RED BLOOD COUNT 3.02 X10'6 (4.20-5.60); WHITE BLOOD COUNT 11.6 X10'3 (4.5-11.0)
[2023-04-12 06:35] LABS: ALANINE AMINOTRANSFERASE 13 U/L (12-78); ALBUMIN 1.8 G/DL (3.4-5.0); ALBUMIN/GLOBULIN RATIO 0.5 (1.1-1.5); ALKALINE PHOSPHATASE 117 IU/L (46-116); ANION GAP 12 (8-16); ASPARTATE AMINO TRANSFERASE 19 U/L (10-37); BILIRUBIN,TOTAL 0.4 MG/DL (0.1-1.0); BLOOD UREA NITROGEN 33 MG/DL (7-18); BUN/CREATININE RATIO 14.9 (10.0-20.0); CALCIUM 8.3 MG/DL (8.5-10.1); CHLORIDE 110 MMOL/L (99-107); CREATININE 2.21 MG/DL (0.40-0.90); GLUCOSE 95 MG/DL (70-104); MAGNESIUM 1.7 MG/DL (1.5-2.4); POTASSIUM 4.3 MMOL/L (3.5-5.1); SODIUM 139 MMOL/L (135-145); TOTAL CARBON DIOXIDE 16.8 MMOL/L (24-32); TOTAL PROTEIN 5.8 G/DL (6.4-8.2); eCRCL 15 ML/MIN; eGFR 22 ML/MIN
[2023-04-12 07:55] VITALS: RESP 20
[2023-04-12] MEDS: heparin, porcine 5000 units/ml vial SQ SCH ×2 (07:57→20:04)
[2023-04-12] MEDS: CefTRIAXone/D5W-Rocephin 1gm 50 ML IV SCH (07:57)
[2023-04-12] MEDS: docusate sod 100mg capsule PO SCH ×2 (07:57→20:02)
[2023-04-12] MEDS: K and/or MAG REPLACEMENT MC SCH ×2 (08:00→20:00)
[2023-04-12] MEDS: normal saline 1000ml 1,000 ML IV SCH ×2 (08:30→18:30)
[2023-04-12] MEDS: guaiFENesin 200 MG/10 ML oral syrup UD cup PO PRN ×2 (09:16→20:02)
[2023-04-12 10:00] VITALS: BP 168/84; PULSE 85; RESP 14; TEMP 98.7; O2SAT 96
[2023-04-12 12:23] LABS: HEMOGLOBIN A1C 8.9 % (4.5-6.2)
[2023-04-12] MEDS ORDERED: normal saline 1000ml 1,000 ML IV SCH (16:35)
[2023-04-12 18:00] VITALS: BP 186/73; PULSE 81; RESP 14; TEMP 99.9; O2SAT 95
[2023-04-12] MEDS ORDERED: guaiFENesin/DM 10ml UD oral syrup PO PRN (19:40)
[2023-04-12] MEDS ORDERED: gabapentin 100mg capsule PO SCH (21:00)
[2023-04-12] MEDS ORDERED: levoFLOXACIN-Levaquin 750MG/D5 150 ML IV SCH (21:00)
[2023-04-12 22:00] VITALS: BP 194/81; PULSE 82; RESP 16; TEMP 97.7; O2SAT 97
[2023-04-13] MEDS ORDERED: amLODIPine 5mg tablet PO ONE (00:20)
[2023-04-13] MEDS: normal saline 1000ml 1,000 ML IV SCH (00:20)
[2023-04-13 02:40] VITALS: BP 185/70; PULSE 76
[2023-04-13] MEDS: losartan 50mg tablet PO SCH ×2 (02:42→09:40)
[2023-04-13 06:00] VITALS: BP 179/69; PULSE 72; RESP 16; TEMP 99.2; O2SAT 96
[2023-04-13 07:36] LABS: BASOPHILS % (AUTO) 0.3 % (0-1); EOSINOPHILS # (AUTO) 0.2 X10'3 (0-0.9); EOSINOPHILS % (AUTO) 2.2 % (0-6); HEMATOCRIT 26.7 % (35.0-45.0); HEMOGLOBIN 8.6 g/dl (12.0-16.0); LYMPHOCYTES % (AUTO) 11.5 % (21-51); MEAN CORPUSCULAR HEMOGLOBIN 29.1 PG (27.0-31.0); MEAN CORPUSCULAR HGB CONC 32.1 g/dL (33.0-36.5); MEAN CORPUSCULAR VOLUME 90.8 FL (78-98); MEAN PLATELET VOLUME 7.4 FL (7.4-10.4); MONOCYTES # (AUTO) 0.7 X10'3 (0-0.9); MONOCYTES % (AUTO) 7.6 % (2-12); NEUTROPHILS % (AUTO) 78.4 % (42-75); PLATELET COUNT 198 X10'3 (140-440); RED BLOOD COUNT 2.94 X10'6 (4.20-5.60)
[2023-04-13 07:50] VITALS: RESP 18
[2023-04-13 07:50] LABS: ALANINE AMINOTRANSFERASE 13 U/L (12-78); ALBUMIN 1.6 G/DL (3.4-5.0); ALBUMIN/GLOBULIN RATIO 0.4 (1.1-1.5); ALKALINE PHOSPHATASE 113 IU/L (46-116); ANION GAP 8 (8-16); ASPARTATE AMINO TRANSFERASE 18 U/L (10-37); BILIRUBIN,TOTAL 0.3 MG/DL (0.1-1.0); BLOOD UREA NITROGEN 26 MG/DL (7-18); BUN/CREATININE RATIO 12.1 (10.0-20.0); CHLORIDE 110 MMOL/L (99-107); CREATININE 2.14 MG/DL (0.40-0.90); GLUCOSE 118 MG/DL (70-104); MAGNESIUM 1.5 MG/DL (1.5-2.4); POTASSIUM 4.3 MMOL/L (3.5-5.1); SODIUM 139 MMOL/L (135-145); TOTAL CARBON DIOXIDE 20.7 MMOL/L (24-32); TOTAL PROTEIN 5.6 G/DL (6.4-8.2); eCRCL 15 ML/MIN; eGFR 22 ML/MIN
[2023-04-13] MEDS ORDERED: amLODIPine 5mg tablet PO SCH (08:00)
[2023-04-13] MEDS: K and/or MAG REPLACEMENT MC SCH (08:00)
[2023-04-13 09:41] VITALS: BP 165/83; PULSE 81
[2023-04-13] MEDS: heparin, porcine 5000 units/ml vial SQ SCH (09:43)
[2023-04-13] MEDS ORDERED: LEVO-65 PO (10:38)
== END 2023-04-13 13:54 | disposition home or self-care (01) | DRG 871 ==
LOC: ER 21:49 → ED HOLD 04-11 02:29 → ORTHO 4S 04-11 22:20
PROVIDERS: ADMIT Internal Medicine; ATTEND Internal Medicine
DX: A41.9 Sepsis, unspecified organism (principal); J18.9 Pneumonia, unspecified organism; N17.0 Acute kidney failure with tubular necrosis; N18.4 Chronic kidney disease, stage 4 (severe); N30.00 Acute cystitis without hematuria; R74.8 Abnormal levels of other serum enzymes; Z20.822 Contact with and (suspected) exposure to COVID-19; M19.90 Unspecified osteoarthritis, unspecified site; E87.5 Hyperkalemia; I12.9 Hypertensive chronic kidney disease with stage 1 through stage 4 chronic kidney disease, or unspecified chronic kidney disease; E11.22 Type 2 diabetes mellitus with diabetic chronic kidney disease; E86.0 Dehydration; B96.20 Unspecified Escherichia coli [E. coli] as the cause of diseases classified elsewhere; Z79.899 Other long term (current) drug therapy
CPT/HCPCS: 36415; 71045; 71250; 80053; 81001; 81003; 82948; 83036; 83605; 83690; 83735; 84132; 84145; 84484; 85007; 85025; 86140; 87040; 87077; 87081; 87088; 87186; 87502; 87503; 87811; 99285; C2617; G0378; J0456; J0696; J1644; J1815; J1956; J2405; J7030